=== PATIENT | female | born 1950 | race Caucasian/White ===

== ENCOUNTER → 2016-05-21 | Outpatient (CLI) | payer MEDICARE, BC ==
[~2016-05-21] MED LIST: ASCORBIC ACID500 MG PO; CARBAMAZEPINE100 M2 PO; CIPRO DPS500 MG PO; DIOVAN80 MG PO; LEVO-T100 MCG PO; MOTRIN-DPS800 MG PO; NORCO 5-325 TA1 EACH PO; PROZAC DPS20 MG PO; TYLENOL EXTRA500 M1 PO; VITAMIN B-12250 MCG PO
== END | disposition home or self-care (01) ==
LOC: RAD.S 12:24
DX: Z12.31 Encounter for screening mammogram for malignant neoplasm of breast (principal); M85.89 Other specified disorders of bone density and structure, multiple sites; Z13.820 Encounter for screening for osteoporosis; Z78.0 Asymptomatic menopausal state

== ENCOUNTER 2016-05-22 07:04 | Emergency (ER) | payer MEDICARE, BC ==
--- NOTE | 2016-05-23 12:15 | ER ---
ADMIT: 05/22/2016 RM/LOC: ER [facility] MR#: [id number] [facility] [place], [place] [id number] [address] [place] [address] Emergency Room Report SEX: F AGE: 65 : 1950 DATE: 05/22/2016 A 65-year-old female with left-sided abdominal pain, sudden onset this morning, nausea but no emesis. She states that the pain is sharp, stabbing, nonradiating. See T-sheet for history and physical. CBC was within normal limits as were electrolytes. CT revealed a 5 mm proximal stone in the left ureter. DIAGNOSIS: Kidney stone. She is instructed to follow up with Dr. Ratliff this coming week. She is given a prescription of Margie and Zofran. Jeremy Hernandez MD/ rizwan JOB #: [id number] CC: Jeremy Hernandez MD, Attending Physician
[2016-05-24] MEDS ORDERED: ASCORBIC ACID500 MG PO (13:17)
[2016-05-24] MEDS ORDERED: PROZAC DPS20 MG PO (13:17)
[2016-05-24] MEDS ORDERED: VITAMIN B-12250 MCG PO (13:17)
[2016-05-24] MEDS ORDERED: CARBAMAZEPINE100 M2 PO (13:18)
[2016-05-24] MEDS ORDERED: DIOVAN80 MG PO (13:18)
[2016-05-24] MEDS ORDERED: LEVO-T100 MCG PO (13:18)
[2016-05-24] MEDS ORDERED: NORCO 5-325 TA1 EACH PO (13:19)
[2016-05-24] MEDS ORDERED: TYLENOL EXTRA500 M1 PO (13:19)
[2016-05-24] MEDS ORDERED: CIPRO DPS500 MG PO (13:19)
[2016-05-24] MEDS ORDERED: MOTRIN-DPS800 MG PO (13:19)
== END 2016-05-22 10:05 | disposition home or self-care (01) ==
LOC: ER 07:04
DX: N13.2 Hydronephrosis with renal and ureteral calculous obstruction (principal); I10 Essential (primary) hypertension; Z88.0 Allergy status to penicillin; Z79.899 Other long term (current) drug therapy

== ENCOUNTER 2016-05-22 22:26 | Observation (INO) | payer MEDICARE, BC ==
[2016-05-24] MEDS ORDERED: PROZAC DPS20 MG PO (13:17)
[2016-05-24] MEDS ORDERED: ASCORBIC ACID500 MG PO (13:17)
[2016-05-24] MEDS ORDERED: VITAMIN B-12250 MCG PO (13:17)
[2016-05-24] MEDS ORDERED: DIOVAN80 MG PO (13:18)
[2016-05-24] MEDS ORDERED: LEVO-T100 MCG PO (13:18)
[2016-05-24] MEDS ORDERED: CARBAMAZEPINE100 M2 PO (13:18)
[2016-05-24] MEDS ORDERED: MOTRIN-DPS800 MG PO (13:19)
[2016-05-24] MEDS ORDERED: NORCO 5-325 TA1 EACH PO (13:19)
[2016-05-24] MEDS ORDERED: CIPRO DPS500 MG PO (13:19)
[2016-05-24] MEDS ORDERED: TYLENOL EXTRA500 M1 PO (13:19)
== END 2016-05-23 18:10 | disposition home or self-care (01) ==
DX: N13.2 Hydronephrosis with renal and ureteral calculous obstruction (principal); I10 Essential (primary) hypertension; G50.0 Trigeminal neuralgia; M19.90 Unspecified osteoarthritis, unspecified site; E07.9 Disorder of thyroid, unspecified; F32.9 Major depressive disorder, single episode, unspecified; Z90.49 Acquired absence of other specified parts of digestive tract; Z90.710 Acquired absence of both cervix and uterus; Z98.890 Other specified postprocedural states; Z88.0 Allergy status to penicillin; Z88.8 Allergy status to other drugs, medicaments and biological substances

== ENCOUNTER → 2016-06-16 | Outpatient (CLI) | payer MEDICARE, BC | END | disposition home or self-care (01) | LOC: RAD.S 07:25 | DX: N20.0 Calculus of kidney (principal) ==